=== PATIENT | male | born 1965 | race Caucasian/White ===

== ENCOUNTER 2021-05-09 10:22 | Outpatient (REF) | payer BC, SELFPAY ==
--- NOTE | ~2021-05-09 | XR_ITS ---
EXAMINATION: XR HAND, RIGHT CLINICAL INFORMATION: Right hand pain. COMPARISON: None TECHNIQUE: PA, lateral, and oblique views of the right hand. FINDINGS: There is widening of the scapholunate joint space, measuring 0.6 cm. The bony alignments are otherwise intact. The cortices are intact. Mild degenerative osteoarthrosis is seen at the radiocarpal, distal radioulnar and the first carpometacarpal joint. Soft tissues are unremarkable. XR/XR hand RT min 3V IMPRESSION: Abnormal study showing evidence of widening of the scapholunate joint space measuring 0.3 cm, consistent with scapholunate ligamentous tear. Incidental note is made of mild degenerative osteoarthrosis of the radiocarpal, distal radioulnar and carpometacarpal joints.
[2021-05-09 14:17] LABS: Baso%MD 0.5 %; Eos%MD 1.6 %; Hematocrit 44.9 % (42-52); IG%MD 0.3 %; Lymph%MD 17.4 %; Mean Corpuscular HGB Conc 33.4 g/dl (31.0-36.0); Mean Corpuscular Hemoglobin 32.3 pg (27.0-33.0); Mean Corpuscular Volume 96.6 fL (80-98); Mono%MD 9.6 %; Neut%MD 70.6 %; Platelet Count 255 X10*3/uL (160-400); Red Blood Count 4.65 X10*6/uL (4.60-5.80); Red Cell Distribution Width 13.1 % (11.0-16.0); White Blood Count 11.5 X10*3/uL (4.8-10.8)
[2021-05-09 14:54] LABS: Uric Acid 7.6 mg/dL (3.4-7.0)
[2021-05-09 14:57] LABS: Rheumatoid Factor < 15.0 IU/mL (<15.0)
[2021-05-09 15:12] LABS: Erythrocyte Sedimentation Rate 23 MM/HR (0-15)
[2021-05-09 15:19] LABS: Band Neutrophils Percent 2 % (3-5); Eosinophils Absolute Manual 0.1 X10*3/UL (0.0-0.8); Eosinophils Percent Manual 1 % (0-4); Lymphocytes Absolute Manual 2.2 X10*3/uL (0.6-4.8); Lymphocytes Percent Manual 19 % (20-40); Monocytes Percent Manual 9 % (2-11); Neutrophils Absolute Manual 8.2 X10*3/uL (2.2-7.9); Neutrophils Percent Manual 69 % (45-73); Platelet Estimate NORMAL (NORMAL); Platelet Morphology Comment NORMAL; RBC Morphology NORMAL
== END 2021-05-09 10:23 | disposition home or self-care (01) ==
LOC: HO.HMGCX 10:22
PROVIDERS: PCP Internal Medicine; Visit Provider Physician Assistant Medical
DX: M79.641 Pain in right hand (principal)
CPT/HCPCS: 36415; 73130; 84550; 85007; 85027; 85652; 86431

== ENCOUNTER 2021-05-10 11:07 | Outpatient (REF) | payer BC, SELFPAY ==
--- NOTE | ~2021-05-10 | XR_ITS ---
EXAMINATION: XR WRIST, RIGHT CLINICAL INFORMATION: Pain right hand. COMPARISON: Previous right hand x-ray 05/09/2021 TECHNIQUE: Clenched view of both wrists. FINDINGS: There is widening of the scapholunate distance. There may be slight proximal migration of the capitate. Soft tissues are unremarkable. There may be subtler changes seen on the left. XR/XR hand wrist RT IMPRESSION: Widened right scapholunate joint and proximal migration of the capitate. There may be subtler similar changes on the left.
== END 2021-05-10 11:08 | disposition home or self-care (01) ==
LOC: HO.HOSX 11:07
PROVIDERS: PCP Internal Medicine; Visit Provider Physician Assistant
DX: M79.641 Pain in right hand (principal); M25.331 Other instability, right wrist
CPT/HCPCS: 73110; 73130

== ENCOUNTER 2021-05-30 11:23 | Outpatient (REF) | payer BC, SELFPAY ==
[2021-05-30 12:40] LABS: Influenza A PCR NEGATIVE (Negative); Influenza B PCR NEGATIVE (Negative); Resp Syncy Virus RNA Qual PCR NEGATIVE (Negative); SARS COV2 PCR INHOUSE NEGATIVE (Negative)
== END 2021-05-30 11:24 | disposition home or self-care (01) ==
LOC: HO.LNP 11:23
PROVIDERS: Visit Provider Internal Medicine
DX: Z20.822 Contact with and (suspected) exposure to COVID-19 (principal); R43.9 Unspecified disturbances of smell and taste
CPT/HCPCS: 0241U

== ENCOUNTER 2021-08-02 18:47 | Outpatient (REF) | payer BC, SELFPAY | END 2021-08-02 18:48 | disposition home or self-care (01) | LOC: HO.LNP 18:47 | PROVIDERS: Visit Provider Physician Assistant Medical | DX: L02.91 Cutaneous abscess, unspecified (principal) | CPT/HCPCS: 87071; 87205 ==

== ENCOUNTER 2024-08-20 08:46 | Outpatient (REF) | payer BC, SELFPAY ==
--- OUTSIDE RECORDS SUMMARY | 2024-08-20 13:57 | XMS_ITS | Clinical Summary ---
Author Organization [address] [place] [address] Address [address] [place] [address] Phone Care Team Providers Care Field Test Engineer Name Role Phone Keith Salazar MD Primary Care Provider [phone] Allergies No known active allergies Medications Medication [...] Department Care Team Description 05/26/2024 Telephone Gastroenterology [facility] [address] [address] Jeet Cardona MD SPECIAL PROCEDURE 05/24/2024 Telephone Gastroenterology [facility] [address] [address] Jeet Cardona MD INFORMATION NEEDED 05/21/2024 Telephone Gastroenterology - [address] [facility] [address] [place] [address] Kin Conrad MD from Last 3 Months Surgical History Surgery Date Site/Laterality Comments KNEE ARTHROSCOPY W/ MENISCAL REPAIR 2008 Bilateral PROCEDURE: MD ARTHROSCOPY KNEE W/MENISCUS RPR MEDIAL/LATERAL CARPAL TUNNEL RELEASE 2011 Right PROCEDURE: MD NEUROPLASTY &/TRANSPOS MEDIAN NRV CARPAL TUNNE Medical [...] Upcoming Encounters Date Type Department Care Team ([facility] st Contact Info) Description 10/26/2024 1:00 PM EDT Appointment [facility] Endoscopy [address] [place] [address] Jeet Cardona MD [address] [place] [address] [address] [place] [address] Health Maintenance Due Date Last Done Comments [...] age to complete this topic Care Teams Field Test Engineer Relationship Specialty Start Date End Date Keith Salazar MD [address] [place] [address] PCP - General Internal Medicine 09/09/18
--- OUTSIDE RECORDS SUMMARY | 2024-08-20 13:57 | XMS_ITS | Clinical Summary ---
Author Organization [facility], Address [address] [place] [place] [phone] Phone Care Team Providers Care Elevator Mechanic Name Role Phone Keith Salazar MD Primary Care Provider [phone] Allergies No known active allergies Medications amLODIPine [...] patient's age to complete this topic Insurance [facility] Care Teams Elevator Mechanic Relationship Specialty Start Date End Date Keith Salazar MD [facility] [address] [place], [place] PCP - General Internal Medicine 12/02/23
--- OUTSIDE RECORDS SUMMARY | 2024-08-20 13:57 | XMS_ITS | Encounter Summary ---
Author Organization [facility] Address [address] [place] [address] Phone Care Team Providers Care Yacht Hand Name Role Phone Keith Salazar MD Primary Care Provider [phone] Encounter Details Date Type Department Care Team (Late st Contact Info) Description 11/18/2023 Documentation Only [facility] [place], [address] [place] [address] Ariana Camacho[place], [place] [address] [place] [address] Social History Tobacco Use Types [...] on filedocumented in this encounter Care Teams Yacht Hand Relationship Specialty Start Date End Date Keith Salazar MD [address] PCP - General Internal Medicine 12/02/23 documented as of this encounter
[2024-08-20 15:59] LABS: Influenza A PCR POSITIVE (Negative); Influenza B PCR NEGATIVE (Negative); Resp Syncy Virus RNA Qual PCR NEGATIVE (Negative); SARS COV2 PCR INHOUSE NEGATIVE (Negative)
== END 2024-08-20 08:47 | disposition home or self-care (01) ==
LOC: HO.HMGCLNP 08:46
PROVIDERS: PCP Internal Medicine; Visit Provider Physician Assistant Medical
DX: J06.9 Acute upper respiratory infection, unspecified (principal); Z13.83 Encounter for screening for respiratory disorder NEC
CPT/HCPCS: 0241U

== ENCOUNTER → 2024-08-20 08:46 | Outpatient (AMB) ==
--- NOTE | 2024-08-20 09:01 | AM.OFFWIN_ITS ---
Intake Vital Signs 08/20/24 09:02 Weight 230 lb BP 116/78 Blood Pressure Location Rt brachial Position Sitting Pulse 98 Pulse Source Pulse Oximeter Temp 99.1 F Temp Source Oral Pulse Oximetry (%) 98 Oxygen Delivery Method Room Air Intake Visit Reasons: EP-chronic cough, tiredness, thirsty, body sore Intake Note: Patient here for cough, body aches, fatigue that started the last couple of days. Patient Tobacco Use Status: Current someday Tobacco user Allergies No Known Allergies [No Known Allergies*] Allergy (Verified 08/20/24 09:02) Do you need a note to return to daycare/school/sports/work: Yes HPI HPI Comments History of Present Illness Details This is a 59-year-old male who presented to the walk-[facility] clinic [facility] of an intermittently dry and intermittently productive cough for the past 2 days. He states the cough becomes so severe that he feels as though he is going to pass out. He states the cough is occasionally productive with yellow sputum but it is usually dry. He denies any associated fever/chills. He denies any chest pain or shortness of breath. He reports associated URI symptoms such as n bianka congestion, rhinorrhea, and sore throat. He does notice occasional wheezing with heavy exertion. He denies any history of asthma or COPD but states that he is a current smoker. He reports positive sick contact with his girlfriend. 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 Review of Systems Const All systems reviewed & are unremarkable except as noted in HPI and below Reports no additional complaints Eyes Reports no additional complaints ENT Reports no additional complaints Card Reports no additional complaints Resp Reports no additional complaints GI Reports no additional complaints Reports no additional complaints Musc Reports no additional complaints Skin/Breast Reports system reviewed and no additional complaints, except as documented Neuro Reports no additional complaints Psych Reports no additional complaints Endo Reports no additional complaints Nestor/Lymph Reports no additional complaints Aller/Immun Reports no additional complaints Physical Exam Vital Signs: Last Vital Signs Temp 99.1 F 08/20/24 09:02 Pulse 98 08/20/24 09:02 BP 116/78 08/20/24 09:02 Pulse Ox 98 08/20/24 09:02 Oxygen Delivery Method Room Air 08/20/24 09:02 Const Other: Vital signs reviewed. Constitutional: Non-toxic appearing. No acute distress. Well-developed and well-nourished. HEENT: Normocephalic and atraumatic. Tympanic membranes without erythema, edema, or bulging bilaterally. External auditory canals without erythema or edema bilaterally. Moist mucous membranes. No pharyngeal erythema or exudates. Skin: Warm and dry. No rashes or lesions noted. Neck: Full and painless range of motion. No cervical lymphadenopathy. Cardio: Regular rate and rhythm. No murmurs, gallops, or rubs. No lower extremity edema. No JVD. Pulmonary: No respiratory distress. No accessory muscle usage. There is faint end expiratory wheezing throughout both lungs. Gastrointestinal: Soft, nontender, and nondistended in all 4 quadrants. Musculoskeletal: Normal range of motion in joints throughout the body. No deformity or other signs of injury. Neuro: Alert and oriented x4. Cranial nerves 2-12 grossly intact. No focal deficits appreciated. Psych: Normal mood and affect. Assessment & Plan Assessment & Plan (1) Acute bronchitis: Code(s): J20.9 - Acute bronchitis, unspecified Qualifiers: Bronchitis organism: unspecified organism Qualified Code(s): J20.9 - Acute bronchitis, unspecified Plan This is a 59-year-old male who presented to the walk-in clinic complaining of an occasionally productive cough x2 days with associated viral URI symptoms. He denies any fevers or chills. On physical examination, he is faint end expiratory wheezing throughout both lungs. His history and physical appear most with acute viral bronchitis. Patient was given a prescription for p.o. prednisone 40 mg daily x5 days and PO benzonatate 200 mg 3 times daily as needed for cough. Recommended symptomatic management including rest, increase fluids/hydration, humidification at nighttime, and [id number] decongestants such as guaifenesin. Patient was advised to follow-up here or proceed to the emergency room if he were to develop any chest pain, shortness of breath, or worsening sputum production/purulence or hemoptysis. Patient verbalizes understanding and he is in agreement with the plan. Orders: Orders SARS-CoV2/FLU/RSV Today J06.9 - Acute upper respiratory infection, unspecified Medications: New prednisone 40 mg (2 x 20 mg) PO DAILY 10 tabs 0RF benzonatate 200 mg PO TID PRN 14 caps 0RF cough Coding Level of Care Code Est Pt Level 3 (45912) Diagnoses Acute bronchitis, unspecified organism J20.9 Bronchitis organism: unspecified organism
--- OUTSIDE RECORDS SUMMARY | 2024-08-20 09:07 | XMS_ITS | Encounter Summary ---
Author Organization [facility] Address [address] [place] [address] Phone Care Team Providers Care Community Planner Name Role Phone Keith Salazar MD Primary Care Provider [phone] Encounter Details Date Type Department Care Team (Late st Contact Info) Description 11/18/2023 Documentation Only [facility], [address] [place] [address] [place]ana [place], [place] [address] [place] [address] Social History Tobacco Use Types Packs/Day Years Used Date Smoking Tobacco: Never Assessed Sex and Gender Information Value Date Recorded Sex Assigned at Not on file Legal Sex Male 8:31 AM EDT Gender Identity Not on file Sexual Orientation Not on file documented as of this encounter Plan of Treatment Not on file documented as of this encounter Visit Diagnoses Not on filedocumented in this encounter Care Teams Community Planner Relationship Specialty Start Date End Date Keith Salazar MD [address] PCP - General Internal Medicine 12/02/23 documented as of this encounter
--- OUTSIDE RECORDS SUMMARY | 2024-08-20 09:07 | XMS_ITS | Clinical Summary ---
Author Organization [address] [place] [address] Address [address] [place] [address] Phone Care Team Providers Care Schedule Hanger Name Role Phone Keith Salazar MD Primary Care Provider [phone] Allergies No known active allergies Medications Medication Sig Dispensed Refills Start Date End Date Status omeprazole (PriLOSEC) [address] capsule Take 1 capsule (20 mg total) by mouth 1 (one) time each day. Active hydroCHLOROthiazide (HYDRODIURIL) 25 mg tablet Take 1 tablet (25 mg total) by mouth 1 (one) time each day. Active oxyCODONE (ROXICODONE) 5 mg immediate release tablet 1 tablet (5 mg total) every 4 (four) hours if needed for severe pain. Max Daily Amount: 30 mg Active amLODIPine-valsartan (EXFORGE) 5-160 mg per tablet Take 1 tablet by mouth 1 (one) time each day. Active fluticasone-umeclidi nium-vilanterol (Trelegy Ellipta) 100-62.5-25 mcg inhaler Inhale 1 puff (100 mcg total) by mouth 1 (one) time each day. Rinse mouth with water after use to reduce aftertaste and incidence of candidiasis. Do not swallow. Active atorvastatin (LIPITOR) 10 mg tablet Take 1 tablet (10 mg total) by mouth at bedtime. Active Encounters Date Type Department Care Team Description 05/26/2024 Telephone Gastroenterology [facility] [address] [address] Jeet Cardona MD SPECIAL PROCEDURE 05/24/2024 Telephone Gastroenterology [facility] [address] [address] Jeet Cardona MD INFORMATION NEEDED 05/21/2024 Telephone Gastroenterology - [address] [facility] [address] [place] [address] Kin Conrad MD from Last 3 Months Surgical History Surgery Date Site/Laterality Comments KNEE ARTHROSCOPY W/ MENISCAL REPAIR 2008 Bilateral PROCEDURE: NM ARTHROSCOPY KNEE W/MENISCUS RPR MEDIAL/LATERAL CARPAL TUNNEL RELEASE 2011 Right PROCEDURE: NM NEUROPLASTY &/TRANSPOS MEDIAN NRV CARPAL TUNNE Medical History Medical History Date Comments Tobacco abuse 10/28/2018 DX:Tobacco abuse Tubular adenoma of colon 10/28/2018 DX:Tubu lar adenoma of colon; COMMENT: 3 in 11/2015 COPD (chronic obstructive pu lmonary disease) (CMS/HCC) 11/06/2018 DX:COPD (chronic obstructive pulmonary disease) (HCC) Pulmonary nodules 11/06/2018 DX:Pulmonary n odules Esophageal varices (CMS/HCC) 11/18/2018 DX: Esophageal varices (HCC) GERD with esophagitis 11/18/2018 DX:GERD wi th esophagitis; COMMENT: La grade A Alcohol abuse 11/18/2018 DX:Alcohol abuse Family History Medical History Relation Name Comments Colon cancer Neg Hx Social History Tobacco Use Types Packs/Day Years Used Date Smoking Tobacco: Smoker, Cur rent Status Unknown Cigarettes 1 42.4 Started: 982 Smokeless Tobacco: Never Alcohol Use Standard Drinks/Week Comments Yes 0 (1 standard drink = 0.6 oz pur e alcohol) Sex and Gender Information Value Date Recorded Sex Assigned at Not on file Gender Identity Not on file Sexual Orientation Not on file Obstetrics History Last Filed Vital Signs Vital Sign Reading Time Taken Comments Blood Pressure 144/90 07/22/2022 9:02 AM EST Sit ting L Arm Pulse 88 07/22/2022 9:02 AM EST Temperature - - Respiratory Rate - - Oxygen Saturation - - Inhaled Oxygen Concentration - - Weight 103 kg (228 lb) 07/22/2022 9:02 AM EST Height - - Body Mass Index - - Plan of Treatment Upcoming Encounters Date Type Department Care Team ([facility] st Contact Info) Description 10/26/2024 1:[address] [facility] Endoscopy [address] [place] [address] Jeet Cardona MD [address] [place] [address] [address] [place] [address] Health Maintenance Due Date Last Done Comments Pneumococcal Vaccine: Pediat rics (0 to 5 Years) and At-Risk Patients (6 to 64 Years) (1 of 2 - PCV) 1970 DTaP,Tdap,and Td Vaccines (1 - Tdap) 1983 Hepatitis A Vaccines (1 of 2 - Risk 2-dose series) 1983 Zoster Vaccines (1 of 2) 2014 Cholesterol Screening (Lipid Panel) 06/23/2022 Colorectal Cancer Screening: Colonoscopy 06/23/2022 Depression Screening 06/23/2022 HIV Screening 06/23/2022 Hepatitis C Screening 06/23/2022 Social Influencers of Health Screening 06/23/2022 COVID-19 Vaccine (1 - 2023-2 5 season) 2024 Influenza Vaccine (#1) 2024 RSV Immunization Patients 60 + Years Old (1 - Risk 60-74 years 1-dose series) 2024 HIB Vaccines Aged Out No longer eligi ble based on patient's age to complete this topic HPV Vaccines Aged Out No longer eligi ble based on patient's age to complete this topic Hepatitis B Vaccines Aged Out No long er eligible based on patient's age to complete this topic IPV Vaccines Aged Out No longer eligi ble based on patient's age to complete this topic MMR Vaccines Aged Out No longer eligi ble based on patient's age to complete this topic Meningococcal ACWY Vaccine Aged Out N o longer eligible based on patient's age to complete this topic RSV Immunization Patients Un antonia 20 months Aged Out No longer eligible b ased on patient's age to complete this topic Varicella Vaccines Aged Out No longer eligible based on patient's age to complete this topic Care Teams Schedule Hanger Relationship Specialty Start Date End Date Keith Salazar MD [address] [place] [address] PCP - General Internal Medicine 09/09/18
--- OUTSIDE RECORDS SUMMARY | 2024-08-20 09:07 | XMS_ITS | Clinical Summary ---
Author Organization [facility], Address [address] [place] [address] [place] [phone] Phone Care Team Providers Care Rn Acls Name Role Phone Keith Salazar MD Primary Care Provider [phone] Allergies No known active allergies Medications amLODIPine (NORVASC) 5 MG tablet Take 5 mg by mouth 1 (one) time each day For 30 days 02/09/2024 Active atorvastatin (LIPITOR) 10 MG tablet TAKE 1 TABLET BY MOUTH EVERY DAY FOR 90 DAYS 12/09/2023 Active omeprazole OTC (PriLOSEC OTC) 20 MG EC tablet Take 20 mg by mouth 1 (one) time each day Do not crush, chew, or split. Active Fluticasone-Umec lidin-Vilant (TRELEGY ELLIPTA IN) Inhale 100 mg Active Active Problems Problem Noted Date Diagnosed Date Hypertension 02/18/2024 Atrophy of kidney 02/18/2024 Cigarette smoker 02/18/2024 Social History Tobacco Use Types Packs/Day Years Used Date Smoking Tobacco: Never Assessed Sex and Gender Information Value Date Recorded Sex Assigned at Not on file Legal Sex Male 8:31 AM EDT Gender Identity Not on file Sexual Orientation Not on file Plan of Treatment Health Maintenance Due Date Last Done Comments Colorectal Cancer Screening: Annual FOBT 2013 Colorectal Cancer Screening: Colonoscopy 2013 Colorectal Cancer Screening: Sigmoidoscopy 2013 Influenza Vaccine (#1) 2024 Hepatitis B Vaccine Aged Out No longe r eligible based on patient's age to complete this topic Pneumococcal Vaccine: Pediat rics (0 to 5 Years) and At-Risk Patients (6 to 64 Years) Aged Out No longer eligible b ased on patient's age to complete this topic Insurance [facility] Care Teams Rn Acls Relationship Specialty Start Date End Date Keith Salazar MD [facility] [address] [place], [place] PCP - General Internal Medicine 12/02/23
== END | disposition home or self-care (01) ==

== ENCOUNTER 2024-10-18 14:30 | Outpatient (AMB) | payer BC, SELFPAY ==
--- NOTE | 2024-10-18 14:31 | AM.OFFWIN_ITS ---
Intake Vital Signs 10/18/24 14:32 Weight 243 lb BP 132/80 Blood Pressure Location Lt brachial Position Sitting Pulse 103 H Pulse Source Pulse Oximeter Pulse Oximetry (%) 98 Oxygen Delivery Method Room Air Intake Visit Reasons: EP-rt hand pain & swollen Intake Note: Patient here for right hand pain and swelling. Patient Tobacco Use Status: Current someday Tobacco user Allergies No Known Allergies [No Known Allergies*] Allergy (Verified 08/20/24 09:02) Do you need a note to return to daycare/school/sports/work: Yes HPI HPI Comments History of Present Illness Details 59 y/o Male patient who presents to the walk in clinic with c/o Right hand swelling and pain that started this past weekend. 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 Patient states that usually Prednisone Helps resolve the swelling. He was told by an Orthopedic Surgeon that he needed surgical repair but Patient is scared and has been putting it off for over a year now. 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 Review of Systems Const All systems reviewed & are unremarkable except as noted in HPI and below Physical Exam Vital Signs: Last Vital Signs Pulse 103 H 10/18/24 14:32 BP 132/80 10/18/24 14:32 Pulse Ox 98 10/18/24 14:32 Oxygen Delivery Method Room Air 10/18/24 14:32 Const General: no acute distress Nutritional Appearance: obese Orientation/consciousness: patient oriented x3 Neuro General: patient oriented x3, gait normal and moves all extremities Extrem Right upper extremity: wrist Details: tenderness Location: of the distal radius and of the distal ulna, swelling Location: of the dorsal wrist, normal ROM, radial pulse present and ulnar pulse present; no ecchymosis and no crepitus and Extremity exam: right hand Details: normal capillary refill, tenderness, normal ROM of fingers and swelling Location: of the dorsal hand, of the thumb, of the 2nd digit, of the 3rd digit, of the 4th digit and of the 5th digit; no crepitus Left upper extremity: normal to inspection Psych Speech and movement: Normal speech and movement present Assessment & Plan Assessment & Plan (1) 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 F/U with Orthopedics NSAIDs for pain relief. 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
[2024-10-18 14:32] VITALS: BP 132/80; PULSE 103; O2SAT 98
--- OUTSIDE RECORDS SUMMARY | 2024-10-18 17:20 | XMS_ITS | Clinical Summary ---
Author Organization [facility] Address [address] [place] [address] Phone Care Team Providers Care Construction And Maintenance Inspector Name Role Phone Keith Salazar MD Primary Care Provider [phone] Allergies No known active allergies Medications omeprazole (PriLOSEC) [address] capsule Take 1 capsule (20 mg total) by mouth 1 (one) time each day. Active hydroCHLOROthia zide (HYDRODIURIL) 25 mg tablet Take 1 tablet (25 mg total) by mouth 1 (one) time each day. Active oxyCODONE (ROXICODONE) 5 mg immediate release tablet 1 tablet (5 mg total) every 4 (four) hours if needed for severe pain. Max Daily Amount: 30 mg Active amLODIPine-vals rolando (EXFORGE) 5-160 mg per tablet Take 1 tablet by mouth 1 (one) time each day. Active fluticasone-ume clidinium-vilan terol (Trelegy Ellipta) 100-62.5-25 mcg inhaler Inhale 1 puff (100 mcg total) by mouth 1 (one) time each day. Rinse mouth with water after use to reduce aftertaste and incidence of candidiasis. Do not swallow. Active atorvastatin (LIPITOR) 10 mg tablet Take 1 tablet (10 mg total) by mouth at bedtime. Active polyethylene glycol (Golytely) 236-22.74-6.74 -5.86 gram solution Take 4L by mouth once for one dose. May substitue any PEG. Starting at 6PM the night before your procedure drink 1 8oz glasses at your own pace until you complete half of the gallon. Finish 2nd half of the gallon 5 hours before your procedure. 4000 mL 5 Active bisacodyL (DULCOLAX) 5 mg EC tablet Take 2 tablets by mouth right before beginning bowel prep. See instructions provided by the office 2 tablet 5 Active Surgical History Surgery Date Site/Laterality Comments KNEE ARTHROSCOPY W/ MENISCAL REPAIR 2008 Bilateral PROCEDURE: ME ARTHROSCOPY KNEE W/MENISCUS RPR MEDIAL/LATERAL CARPAL TUNNEL RELEASE 2012 Right PROCEDURE: ME NEUROPLASTY &/TRANSPOS MEDIAN NRV CARPAL TUNNE Medical History Medical History Date Comments Tobacco abuse 10/28/2018 DX:Tobacco abuse Tubular adenoma of colon 10/28/2018 DX:Tubu lar adenoma of colon; COMMENT: 3 in 11/2015 COPD (chronic obstructive pu lmonary disease) (CMS/HCC) 11/06/2018 DX:COPD (chronic obstructive pulmonary disease) (HCC) Pulmonary nodules 11/06/2018 DX:Pulmonary n odules Esophageal varices 11/18/2018 DX:Esophageal varices (HCC) GERD with esophagitis 11/18/2018 DX:GERD wi th esophagitis; COMMENT: La grade A Alcohol abuse 11/18/2018 DX:Alcohol abuse Family History Medical History Relation Name Comments Colon cancer Neg Hx Social History Tobacco Use Types Packs/Day Years Used Date Smoking Tobacco: Smoker, Cur rent Status Unknown Cigarettes 1 42.5 Started: 982 Smokeless Tobacco: Never Alcohol Use Standard Drinks/Week Comments Yes 0 (1 standard drink = 0.6 oz pur e alcohol) Sex and Gender Information Value Date Recorded Sex Assigned at Not on file Legal Sex Male 10:19 AM EST Gender Identity Not on file Sexual Orientation [...] Upcoming Encounters Date Type Department Care Team (Late st Contact Info) Description 10/26/2024 1:00 PM EDT Hospital Encounter [facility] Endoscopy [address] [place] [address] Jeet Cardona MD [address] [place] [address] Health Maintenance Due Date Last Done Comments DTaP,Tdap,and Td Vaccines (1 - Tdap) 1983 Pneumococcal Vaccine: 50+ Ye ars (1 of 2 - PCV) 1983 Pneumococcal Vaccine: Pediat rics (0 to 5 Years) and At-Risk Patients (6 to 64 Years) (1 of 2 - PCV) 1983 Zoster Vaccines (1 of 2) 2014 Cholesterol Screening (Lipid Panel) 06/23/2022 Colorectal Cancer Screening: Colonoscopy 06/23/2022 Depression Screening 06/23/2022 HIV Screening 06/23/2022 Hepatitis C Screening 06/23/2022 Social Influencers of Health Screening 06/23/2022 COVID-19 Vaccine (2023-2 5 season) 2024 RSV Immunization Adult Patie nts (1 - Risk 60-74 years 1-dose series) 2024 Influenza Vaccine (Season Ended) 2025 HIB Vaccines Aged Out No longer eligi ble based on patient's age to complete this topic HPV Vaccines Aged Out No longer eligi ble based on patient's age to complete this topic Hepatitis A Vaccines Aged Out No long er eligible [...] patient's age to complete this topic Meningococcal B Vaccine Aged Out No l onger eligible based on patient's age to complete this topic RSV Immunization Patients Un antonia 20 months Aged Out No longer eligible b ased on patient's age to complete this topic Varicella Vaccines Aged Out No longer eligible based on patient's age to complete this topic Insurance [facility] Care Teams Construction And Maintenance Inspector Relationship Specialty Start Date End Date Keith Salazar MD [address] [place] [phone] PCP - General Internal Medicine 09/09/18
--- OUTSIDE RECORDS SUMMARY | 2024-10-18 17:20 | XMS_ITS | Clinical Summary ---
Author Organization [facility], Address [address] [place] [address] [place] [phone] Phone Care Team Providers Care Component Assembler Name Role Phone Keith Salazar MD Primary Care Provider [phone] Allergies No known active allergies Medications amLODIPine [...] Colorectal Cancer Screening: Sigmoidoscopy 2013 Influenza Vaccine (Season Ended) 2025 Hepatitis B Vaccine Aged Out No longe r eligible based on patient's age to complete this topic Pneumococcal Vaccine: Pediat rics (0 to 5 Years) and At-Risk Patients (6 to 64 Years) Aged Out No longer eligible b ased on patient's age to complete this topic Insurance [facility] Care Teams Component Assembler Relationship Specialty Start Date End Date Keith Salazar MD [facility] [address], [place] PCP - General Internal Medicine 12/02/23
--- OUTSIDE RECORDS SUMMARY | 2024-10-18 17:20 | XMS_ITS | Encounter Summary ---
Author Organization [facility] Address [address] [place] [address] Phone Care Team Providers Care Network Communications Engineer Name Role Phone Keith Salazar MD Primary Care Provider [phone] Encounter Details Date Type Department Care Team (Late st Contact Info) Description 11/18/2023 Documentation Only [facility], [address] [place] [address] [place], [place] [address] [place] [address] Social History Tobacco Use Types [...] on filedocumented in this encounter Care Teams Network Communications Engineer Relationship Specialty Start Date End Date Keith Salazar MD [address] PCP - General Internal Medicine 12/02/23 documented as of this encounter
== END 2024-10-18 15:14 | disposition home or self-care (01) ==
PROVIDERS: PCP Internal Medicine; Visit Provider Nurse Practitioner Family
DX: M93.1 Kienbock's disease of adults (principal)

== ENCOUNTER → 2024-10-18 14:30 | Outpatient (BNVA) | payer BC, SELFPAY | PROVIDERS: PCP Internal Medicine; Visit Provider Nurse Practitioner Family | DX: Z13.89 Encounter for screening for other disorder (principal) ==

== ENCOUNTER 2025-01-19 09:16 | Inpatient (IN) | payer BC, SELFPAY ==
--- NOTE | 2025-01-19 | ECG_ITS ---
Test Reason : seizures Blood Pressure : */* mmHG Vent. Rate : 65 BPM Atrial Rate : 65 BPM P-R Int : 168 ms QRS Dur : 82 ms QT Int : 378 ms P-R-T Axes : 64 1 40 degrees QTcB Int : 393 ms Sinus rhythm with Premature atrial complexes Otherwise normal ECG When compared with ECG of 24-Sep-2007 17:01, MANUAL COMPARISON REQUIRED PREVIOUS ECG IS INCOMPATIBLE Referred By: Generic ED Physician Electronically Signed By: Raul Lee
--- NOTE | ~2025-01-19 | CT_ITS ---
EXAMINATION: CT HEAD WITHOUT CONTRAST CLINICAL INFORMATION: body twitching, dizziness, imbalance COMPARISON: None available. TECHNIQUE: Contiguous axial imaging was performed from the skull base to vertex without intravenous administration of contrast. This CT examination was performed using dose optimization techniques as appropriate, variously including the following: *Automated exposure control *Adjustment of mA and/or kV according to patient size (this includes techniques or standardized protocols for targeted exams where dose is matched to indication/reason for exam; i.e. extremities or head) *Use of iterative reconstruction technique DLP: 725 mGy-cm FINDINGS: No acute intracranial hemorrhage, mass effect, midline shift, hydrocephalus or herniation. Vides-white matter differentiation is normal. Sellar/suprasellar region demonstrated no gross masses. Craniocervical junction demonstrates normal position of the cerebellar tonsils. Mucosal thickening, left ethmoid cells. No air-fluid levels paranasal sinuses. Tympanic cavities and mastoid cells are aerated. CT/CT head/brain wo IV con IMPRESSION: No acute intracranial hemorrhage or acute brain abnormality by CT. Electronically signed by: Taran Ayala MD 01/19/2025 01:01 PM EDT
[2025-01-19 09:31] VITALS: BP 150/81; PULSE 75; RESP 18; TEMP 36.7; O2SAT 98; BMI 30.3
[2025-01-19 09:57] LABS: MANUAL DIFF FLAG NO
[2025-01-19 09:59] LABS: Hematocrit 42.2 % (42.0-52.0); Hemoglobin 14.5 g/dl (14.0-18.0); Imm Gran Abs Auto 0.04 X10*3/uL (0.00-0.03); Imm Gran Pct Auto 0.4 % (0.0-0.4); Lymphocytes Absolute Auto 1.7 X10*3/uL (1.2-4.9); Mean Corpuscular HGB Conc 34.4 g/dl (31.0-36.0); Mean Corpuscular Hemoglobin 32.9 pg (27.0-33.0); Mean Corpuscular Volume 95.7 fL (80.0-98.0); NRBC Abs Auto 0.000 X10*3/uL (0.0-0.012); NRBC Pct Auto 0.0 /100WBC (0.0-0.2); Platelet Count 250 X10*3/uL (160-400); Red Blood Count 4.41 X10*6/uL (4.60-5.80); White Blood Count 9.9 X10*3/uL (4.8-10.8)
[2025-01-19 10:14] LABS: Alanine Aminotransferase 55 U/L (0-40); Albumin Level 4.2 g/dL (3.5-5.0); Alkaline Phosphatase 110 U/L (39-117); Anion Gap 12 (12-20); Blood Urea Nitrogen 17 mg/dL (9-16); Calcium 9.3 mg/dL (8.4-10.2); Carbon Dioxide 28 mmol/L (22-29); Chloride 104 mmol/L (96-108); Creatinine Clr Calc Pharmacy 92.2; Estimated Glomerular Filt Rate > 60; Magnesium 2.4 mg/dL (1.6-2.6); Potassium 5.0 mmol/L (3.3-5.1); Sodium 139 mmol/L (135-145); Total Protein 7.6 g/dL (6.5-8.0)
[2025-01-19 10:23] LABS: Troponin-I High Sensitivity < 2.7 ng/L (<3.5-35.0)
--- NOTE | 2025-01-19 10:25 | ED.GENADULT ---
HPI - General Adult General Chief complaint: General Medical Stated complaint: Seizures Time Seen by Provider: 01/19/25 10:25 Source: patient Mode of arrival: ambulatory Limitations: no limitations History of Present Illness ED Provider: Sommer Haq PA-C HPI narrative: Patient is a 59 year old assigned male at with a history of daily alcohol use presenting to the emergency department today with intermittent episodes of feeling flush, shaky, shortness of breath, and weak. Patient states that the he has been having an increase in these episodes and they feel like seizures and are getting worse. Patient states that he drinks 4-5 drinks per day and has for a long time. Patient states that he is not sure what happens if he weren't to drink. Patient denies any dizziness, lightheadedness, abdominal pain, nausea, vomiting, fever, chills, blurry vision, double vision, loss of vision, chest pain, difficulty breathing, shortness of breath, back pain, night sweats, pain with urination, increased urinary frequency, increased urinary urgency, blood in his urine or stool, syncope or a near syncopal episode, recent trauma or falls, bowel incontinence, bladder incontinence, or any other complaints at this time. Relieving factors: none Exacerbating factors: none Associated symptoms: seizure (seizure like activity) Treatments prior to arrival: none Related Data Home Medications ?Medication ?Instructions ?Recorded ?Confirmed nadolol 40 mg tablet 40 mg PO DAILY 05/09/21 10/23/21 omeprazole 20 mg capsule,delayed 20 mg PO DAILY 05/09/21 10/23/21 release amlodipine 10 mg tablet 10 mg PO DAILY 08/20/24 fluticasone fur. 100 mcg-umeclid 1 inh inhalation DAILY 08/20/24 62.5 mcg-vilant 25 mcg inhalat.powder (Trelegy Ellipta) valsartan 320 mg tablet 320 mg PO DAILY 08/20/24 allopurinol 100 mg tablet 100 mg PO DAILY 01/19/25 atorvastatin 10 mg tablet 10 mg PO DAILY 01/19/25 nebivolol 5 mg tablet 5 mg PO DAILY 01/19/25 Previous Rx's ?Medication ?Instructions ?Recorded albuterol sulfate 90 mcg/actuation 1 inh inhalation QID PRN shortness 07/26/21 aerosol inhaler of breath or wheezing #6.7 grams Allergies Allergy/AdvReac Type Severity Reaction Status Date / Time No Known Allergies (No Known Allergy Verified 01/19/25 09:36 Allergies*) Review of Systems Constitutional: Constitutional: Reports no additional constitutional complaints, Denies chills, Denies fever(s) and Denies night sweats Eyes: Eyes: Reports no additional eye complaints, Denies blurry vision, Denies change in vision, Denies diplopia, Denies eye discharge, Denies loss of vision and Denies eye pain ENT: Denies dizziness Cardiovascular: Cardiovascular: Reports no additional cardiovascular complaints, Denies chest pain, Denies lightheadedness, Denies Loss of Consciousness and Denies dyspnea Respiratory: Respiratory: Reports no additional respiratory complaints and Denies dyspnea Gastrointestinal: Gastrointestinal: Reports no additional gastrointestinal complaints, Denies abdominal pain, Denies melena, Denies hematochezia, Denies change in bowel habits and Denies change in stool character Genitourinary: Genitourinary: Reports no additional male genitourinary complaints, Denies hematuria, Denies oliguria, Denies difficulty urinating, Denies dysuria, Denies urinary frequency, Denies urinary hesitancy, Denies urinary incontinence and Denies urinary urgency Musculoskeletal: Musculoskeletal: Reports no additional musculoskeletal complaints, Denies numbness and Denies tingling Neurologic: Denies dizziness, Denies loss of vision, Denies numbness and Denies tingling Comments: seizure like activity Psychiatric: Psychiatric: Reports no additional psychiatric complaints Endocrine: Endocrine: Reports no additional endocrine complaints Hematologic/Lymphatic: Hematologic/Lymphatic: Reports no additional hematologic/lymphatic complaints Allergic/Immunologic: Allergic/Immunologic: Reports no additional allergic/immunologic complaints PMFSH Past Medical History Attestation statement: The following information was validated with the patient. Source: old records reviewed and nursing notes reviewed Medical History (Updated 01/19/25 @ 13:05 by LONNY Sanders) COPD (chronic obstructive pulmonary disease) Hypertension Surgical History History of carpal tunnel surgery of right wrist Social History Social History Alcohol intake: current Alcohol intake frequency: 3 or more drinks per day Alcohol type: beer Patient Tobacco Use Status: Never used Tobacco Smoked in Last 30 Days: Yes Use of substances other than those prescribed or required for medical reasons: No Advance Directives: No Advance Directives Information Provided: Yes Nutrition Risks: No Nutritional Risk Current occupational status: employed 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 Physical Exam ED Vital Signs: Vital Signs - 24 hr 01/19/25 09:31 Temperature 98.1 F Pulse Rate 75 Respiratory Rate 18 Blood Pressure 150/81 H Pulse Oximetry 98 Oxygen Delivery Method Room Air BMI result Body Mass Index 30.3 Const General: cooperative, no acute distress, alert and awake Nutritional Appearance: well nourished Orientation/consciousness: patient oriented x3 HENMT Head: Yes normal to inspection and Yes atraumatic Ears: hearing grossly normal bilaterally and external ears normal General nose exam: Normal external nose present, no nasal discharge noted and no epistaxis Face and sinus: Yes normal facial exam, No abrasion and No laceration Mouth: Normal oral and palatal mucosa present, no drooling and no muffled voice Eyes General: appearance normal, both eyes and all related structures Periorbital: periorbital findings normal Eyelids: Yes eyelids normal Conjunctivae: conjunctivae normal Pupils: Equal, round and reactive pupils present EOM: EOMs intact bilaterally Neck Neck: Yes normal visual inspection, Yes full ROM and Yes no lymphadenopathy Resp Effort & Inspection: normal respiratory effort and able to speak in complete sentences Neuro General: patient oriented x3, moves all extremities and CN's II-XI intact bilaterally Cranial nerves: Yes Equal, round and reactive pupils present Cognition (Neuro): normal cognition Extrem General: Yes normal to inspection, Yes full ROM and Yes capillary refill normal Psych Appearance: grossly normal Mental Status: mental status grossly normal Affect: normal affect Attitude: cooperative Thought process: Normal thought process present Thought content: Normal thought content present Insight: Good insight present (Psych) Medications Administered Generic Name Dose Route Start Last Admin Trade Name Freq PRN Reason Stop Dose Admin Enoxaparin Sodium 40 mg 01/19/25 12:00 01/19/25 11:56 Enoxaparin Sodium 40 Mg/0.4 Ml Syringe SUBCUT 40 mg Q24H JOCELYN Administration Lactated Ringer's 1,000 mls @ 125 mls/hr 01/19/25 11:45 01/19/25 12:05 Lr IVCONT 125 mls/hr .Q8H JOCELYN Administration Discontinued Medications Generic Name Dose Route Start Last Admin Trade Name Freq PRN Reason Stop Dose Admin Phenobarbital Sodium 320 mg 01/19/25 11:00 01/19/25 11:56 Phenobarbital Sodium 130 Mg/Ml Im Once IM 01/19/25 11:01 320 mg ONCE ONE Administration Protocol Medical Decision Making Medical Decision Making [facility] Narrative: Patient is a 59 year old assigned male at with a history of daily alcohol use presenting to the emergency department today with intermittent episodes of feeling flush, shaky, shortness of breath, and weak. Patient's physical exam was unremarkable. Patient's blood work showed mildly elevated LFTs consistent with his alcohol use but were otherwise unremarkable. Patient's EKG was unremarkable. I am suspicious this is how the patient's alcohol withdrawal is presenting and he may be seizing but given he didn't have an episode in the department - I cannot confirm they are or aren't. Patient started on phenobarb. I spoke with the hospitalist team who agreed to admission. I explained my physical exam findings as well as all test results to the patient. I answered all questions asked by the patient. Patient verbalized agreement and understanding with this treatment plan and admission. Differential Diagnosis Differential Diagnoses: The differential diagnosis associated with the presentation includes Alcohol withdrawal Seizure disorder Anxiety Admission/Observation Consideration of admission/observation: Escalation of care including admission/observation considered Patient admitted as noted in the MDM Rationale portion of this note. Consult Healthcare Provider Management of the patient was discussed with: Hospitalist (agreed to admission as noted in the MDM Rationale portion of this note. ) Lab Data [facility] Lab Attestation statement: I reviewed the patient's lab results. My interpretation of these results are in the MDM Rationale portion of this note. 01/19/25 09:51 01/19/25 09:51 Labs: Lab Results 01/19/25 01/19/25 01/19/25 Range/Units 09:51 10:46 10:58 WBC 9.9 (4.8-10.8) X10*3/uL RBC 4.41 L (4.60-5.80) X10*6/uL Hgb 14.5 (14.0-18.0) g/dl Hct 42.2 (42.0-52.0) % MCV 95.7 (80.0-98.0) fL MCH 32.9 (27.0-33.0) pg MCHC 34.4 (31.0-36.0) g/dl RDW 13.2 (11.0-16.0) % Plt Count 250 (160-400) X10*3/uL MPV 9.4 (9.4-12.4) fL Immature Gran % (Auto) 0.4 (0.0-0.4) % Neut % (Auto) 70.7 (45-73) % Lymph % (Auto) 17.0 L (20-40) % Major % (Auto) 9.7 (2-11) % Eos % (Auto) 1.5 (0-4) % Baso % (Auto) 0.7 (0-2) % Lymph # (Auto) 1.7 (1.2-4.9) X10*3/uL Major # (Auto) 1.0 (0.1-1.2) X10*3/uL Eos # (Auto) 0.2 (0.0-0.4) X10*3/uL Baso # (Auto) 0.1 (0.0-0.2) X10*3/uL Abs Immat Gran (auto) 0.04 H (0.00-0.03) X10*3/uL Absolute Neuts (auto) 7.0 (2.0-8.3) x10*3/uL Absolute Nucleated RBC 0.000 (0.0-0.012) X10*3/uL Nucleated RBC % (auto) 0.0 (0.0-0.2) /100WBC Sodium 139 (135-145) mmol/L Potassium 5.0 (3.3-5.1) mmol/L Chloride 104 (96-108) mmol/L Carbon Dioxide 28 (22-29) mmol/L Anion Gap 12 (12-20) BUN 17 H (9-16) mg/dL Creatinine 1.08 (0.5-1.4) mg/dL Estim Creat Clear Calc 92.2 Estimated GFR > 60 Random Glucose 117 H (60-115) mg/dL Calcium 9.3 (8.4-10.2) mg/dL Magnesium 2.4 (1.6-2.6) mg/dL Total Bilirubin 0.4 (0.0-1.0) mg/dL AST 63 H (5-37) U/L ALT 55 H (0-40) U/L Alkaline Phosphatase 110 (39-117) U/L Troponin I High Sens < 2.7 (<3.5-35.0) ng/L Total Protein 7.6 (6.5-8.0) g/dL Albumin 4.2 (3.5-5.0) g/dL Vitamin B12 180 L (200-900) pg/mL Folate 10.4 (> or = 4.0) ng/mL Ethyl Alcohol < 10 mg/dL Influenza Type A (PCR) NEGATIVE (Negative) Influenza Type B (PCR) NEGATIVE (Negative) RSV RNA Qual (PCR) NEGATIVE (Negative) SARS-CoV-2 RNA (RT-PCR) NEGATIVE (Negative) Independent Interpretation I performed an independent interpretation of an: EKG Interpretation: I independently interpreted this EKG and am in agreement with the below findings: Vent. Rate: 65 BPM Atrial Rate: 65 BPM P-R Int: 168 ms QRS Dur: 82 ms QT Int: 378 ms P-R-T Axes: 64 1 40 degrees QTcB Int: 393 ms Sinus rhythm with Premature atrial complexes Otherwise normal ECG DD/ [id number] Critical Care Time Critical Care Time Critical Care Time: Yes Total Critical Care Time: 33 Attestation: I spent 33 minutes of Critical Care Time with this patient. This does not include time spent on separately reported billable procedures. Discharge Plan Discharge Clinical Impression: Alcohol withdrawal Patient Disposition: Admitted As Inpatient
[2025-01-19 10:38] LABS: Aspartate Amino Transferase 63 U/L (5-37)
--- NOTE | 2025-01-19 11:00 | PC.NURSE ---
pt states that he has been experiencing weird seizures for several weeks. during these episodes his hands and legs clench up. He states that when these episodes happen he can't walk well. If he is driving he clutches the steering wheel tightly. He always remembers the events and does not loose consciousness. He denies recent fall or HS. He is concerned bc sometimes these episodes happen when he is at work and using a ladder or escalator and he gets vertigo and almost falls . No history of these episodes before recent weeks. pt is a daily drinker. he reports 4-6 beers daily after work. He denies hx of withdrawal. mildly anxious - CIWA 1
[2025-01-19 11:37] LABS: Resp Syncy Virus RNA Qual PCR NEGATIVE (Negative); SARS COV2 PCR INHOUSE NEGATIVE (Negative)
--- NOTE | 2025-01-19 11:38 | P.HPHOSP_ITS ---
History of Present Illness Date of Service: 01/19/25 Chief Complaint: Alcohol withdrawal 59-year-old man presented to the ER with complaints of shakiness like muscle twitching, dizziness and imbalance. He reports that the dizziness and imbalance has been present since around November but the muscle twitching started about a week ago. He reports that he feels like he freezes up for a few sec and then it stops, the symptoms tend to come and go. He is completely awake and aware during these episodes. He denied any loss of consciousness, syncope, visual changes, headache, chest pain, shortness of breath. He reported no new recent medications. He drinks 4-5 beers a day last drink was yesterday, he denied any history of alcohol withdrawal or seizures. In the ER, his B12 was noted to be low at 180, B12 is low at 180, no anemia, he does have mild transaminitis as well. In the ER, he was started on phenobarbital. Plan will be to admit patient for further management and treatment of muscle twitching and possible alcohol withdrawal Review of Systems 2 Review of Systems: Denies any recent fever chills or decrease in appetite respiratory denies any shortness of breath or cough cardiovascular denied chest pain gastrointestinal denies any dysphagia abdominal pain nausea vomiting or diarrhea genitourinary denies any dysuria frequency or hematuria musculoskeletal denies any joint pain or swelling neuropsych denies any weakness or seizures all other systems reviewed are negative [facility] Medical History (Updated 01/19/25 @ 13:05 by LONNY Sanders) COPD (chronic obstructive pulmonary disease) Hypertension Surgical History History of carpal tunnel surgery of right wrist Social History Alcohol intake: current Alcohol intake frequency: 3 or more drinks per day Alcohol type: beer Patient Tobacco Use Status: Never used Tobacco Smoked in Last 30 Days: Yes Use of substances other than those prescribed or required for medical reasons: No Advance Directives: No Advance Directives Information Provided: Yes Nutrition Risks: No Nutritional Risk Current occupational status: employed 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 Meds Allergies Allergy/AdvReac Type Severity Reaction Status Date / Time No Known Allergies (No Known Allergy Verified 01/19/25 09:36 Allergies*) Active Medications: Current Medications Acetaminophen (Acetaminophen 325 Mg Tablet) 650 mg PO Q6H PRN PRN Reason: Pain, Mild 1-3,fever,headache Calcium Carbonate (Calcium Carbonate 750 Mg Tab.Chew) 750 mg PO Q4H PRN PRN Reason: Heartburn Enoxaparin Sodium (Enoxaparin Sodium 40 Mg/0.4 Ml Syringe) 40 mg SUBCUT Q24H [facility] Lactated Ringer's (Lr) 1,000 mls @ 125 mls/hr IVCONT .Q8H JOCELYN Magnesium Hydroxide (Milk Of Magnesia 30 Ml Oral.Susp) 30 ml PO DAILY PRN PRN Reason: Constipation Melatonin (Melatonin 3 Mg Tablet) 6 mg PO BEDTIME PRN PRN Reason: Insomnia Ondansetron HCl (Ondansetron Hcl 4 Mg/2 Ml Vial) 4 mg IVPUSH Q8H PRN PRN Reason: Nausea and Vomiting Pharmacy Consult (Consult Rx Etoh Phenob Im/Po) 1 each MISCELLANE ONCE PRN; Protocol PRN Reason: Consult order Phenobarbital (Phenobarbital 30 Mg Tablet) 60 mg PO BID [facility]; Protocol Stop: 01/21/25 09:01 Phenobarbital (Phenobarbital 30 Mg Tablet) 30 mg PO BID [facility]; Protocol Stop: 01/23/25 09:01 Phenobarbital (Phenobarbital 30 Mg Tablet) 30 mg PO DAILY [facility]; Protocol Stop: 01/25/25 09:01 Phenobarbital Sodium (Phenobarbital Sodium 130 Mg/Ml Vial Im Q3hx2) 240 mg IM Q3H JOCELYN; Protocol Stop: 01/19/25 17:01 Sodium Chloride (0.9 % Sodium Chloride Flush 3 Ml Syringe) 3 ml IVFLUSH QSHIFT [facility] Home Medications ?Medication ?Instructions ?Recorded ?Confirmed ?Last Taken ?Type nadolol 40 mg tablet 40 mg PO DAILY 05/09/2110/12 Unknown History omeprazole 20 mg capsule,delayed 20 mg PO DAILY 10/23/21 Unknown History release amlodipine 10 mg tablet 10 mg PO DAILY 08/20/24 Unk nown History fluticasone fur. 100 mcg-umeclid 1 inh inhalation SUZAN Y 08/20/24 Unknown History 62.5 mcg-vilant 25 mcg inhalat.powder (Trelegy Ellipta) valsartan 320 mg tablet 320 mg PO DAILY 08/20/24 Un known History allopurinol 100 mg tablet 100 mg PO DAILY 01/19/25 Un known History atorvastatin 10 mg tablet 10 mg PO DAILY 01/19/25 Unk nown History nebivolol 5 mg tablet 5 mg PO DAILY 01/19/25 Unkn own History Physical Exam 2 Vital Signs and Narrative: Vital Signs: Last Vital Signs Temp 98.1 F 01/19/25 09:31 Pulse 75 01/19/25 09:31 Resp 18 01/19/25 09:31 BP 150/81 H 01/19/25 09:31 Pulse Ox 98 01/19/25 09:31 O2 Del Method Room Air 01/19/25 09:31 BMI result Body Mass Index 30.3 Appearing in no acute distress head is normocephalic atraumatic eyes pupils are PERRLA sclera is anicteric mouth throat mucous membranes are intact and moist neck is supple no lymphadenopathy, no JVD noted lung sounds are clear to auscultation heart regular rate rhythm, clear S1, S2 positive bowel sounds, abdomen is soft, nontender neuro patient is alert x3, no focal deficits Results Labs 01/19/25 09:51 01/19/25 09:51 Labs: Laboratory Results - last 24 hr 01/19/25 01/19/25 09:51 10:46 MCV 95.7 MCH 32.9 MCHC 34.4 RDW 13.2 Plt Count 250 MPV 9.4 Immature Gran % (Auto) 0.4 Neut % (Auto) 70.7 Lymph % (Auto) 17.0 L Wood % (Auto) 9.7 Eos % (Auto) 1.5 Baso % (Auto) 0.7 Lymph # (Auto) 1.7 Wood # (Auto) 1.0 Eos # (Auto) 0.2 Baso # (Auto) 0.1 Abs Immat Gran (auto) 0.04 H Absolute Neuts (auto) 7.0 Absolute Nucleated RBC 0.000 Nucleated RBC % (auto) 0.0 Anion Gap 12 Estim Creat Clear Calc 92.2 Estimated GFR > 60 Random Glucose 117 H Calcium 9.3 Magnesium 2.4 Total Bilirubin 0.4 AST 63 H ALT 55 H Alkaline Phosphatase 110 Total Protein 7.6 Albumin 4.2 Ethyl Alcohol < 10 Influenza Type A (PCR) NEGATIVE Influenza Type B (PCR) NEGATIVE RSV RNA Qual (PCR) NEGATIVE SARS-CoV-2 RNA (RT-PCR) NEGATIVE Assessment and Plan (1) Alcohol withdrawal: Status: Acute Plan 59-year-old man admitted for alcohol withdrawal and body tensing Spasticity Unknown etiology at this time Electrolytes are normal, B12 is low, will replace Neurology consultation placed Head CT normal Alcohol withdrawal syndrome Phenobarbital protocol IV fluids Multivitamin, thiamine, folic acid PPI Transaminitis Mild Likely secondary to alcohol abuse Hypertension Stable blood pressure Wheezing Inhalers as needed albuterol as needed DVT prophylaxis with Lovenox Full code Medication reconciliation pending Quality Stroke Does the patient have a stroke diagnosis?: No VTE Prior VTE?: No VTE Risk Level:: Medical - moderate - high VTE Device Contraindication: Treatment Not Indicated VTE Drug Contraindication: N/A - Med Ordered
[2025-01-19 11:53] LABS: Folate 10.4 ng/mL (> or = 4.0)
[2025-01-19] MEDS: PHENobarbitaL sodium 130 MG/ML IM ONCE 320 MG IM (11:56)
[2025-01-19 11:58] LABS: Vitamin B12 180 pg/mL (200-900)
[2025-01-19] MEDS: Lactated Ringers 1,000 ML 125 ML IVCONT (12:05)
--- OUTSIDE RECORDS SUMMARY | 2025-01-19 12:17 | XMS_ITS | Clinical Summary ---
Author Organization [facility], Address [address] [place] [address] [place] [phone] Phone Care Team Providers Care Program Manufacturing Leader Name Role Phone Keith Salazar MD Primary Care Provider [phone] Allergies No known active allergies Medications amLODIPine [...] Colonoscopy 2013 Colorectal Cancer Screening: Sigmoidoscopy 2013 Pneumococcal Vaccine: 50+ Ye ars (1 of 1 - PCV) 2014 Influenza Vaccine (#1) 2025 Hepatitis B Vaccine Aged Out No longe r eligible based on patient's age to complete this topic Insurance [facility] Care Teams Program Manufacturing Leader Relationship Specialty Start Date End Date Keith Salazar MD [facility] [address], [place] PCP - General Internal Medicine 12/02/23
--- OUTSIDE RECORDS SUMMARY | 2025-01-19 12:17 | XMS_ITS | Clinical Summary ---
Author Organization [facility] Address [address] [place] [address] Phone Care Team Providers Care Batch Still Operator Name Role Phone Keith Salazar MD Primary Care Provider [phone] Allergies No known active allergies Medications omeprazole [...] by the office 2 tablet 5 Active amLODIPine (NORVASC) 10 mg tablet Take 1 tablet (10 mg total) by mouth 1 (one) time each day in the morning. 5 Active valsartan (DIOVAN) 320 mg tablet Take 1 tablet (320 mg total) by mouth 1 (one) time each day. 5 Active Encounters Date Type Department Care Team Description 10/26/2024 12:33 PM EDT Anesthesia Event [facility] Endoscopy [address] [place] [address] Carlos Guevara MD 10/26/2024 11:44 AM EDT - 10/26/2024 11:59 PM EDT Hospital Encounter [facility] Endoscopy [address] [place] [id number] Jeet Cardona MD Steele, Matthew G, CRNA Dasilva, John E, MD Hx of colonic polyps Discharge Disposition: Home or Self Care from Last 3 Months Surgical History Surgery Date Site/Laterality Comments KNEE ARTHROSCOPY W/ MENISCAL REPAIR 2007 Bilat eral PROCEDURE: [place] ARTHROSCOPY KNEE W/MENISCUS RPR MEDIAL/LATERAL CARPAL TUNNEL RELEASE 2012 Right PROCEDURE: [place] NEUROPLASTY &/TRANSPOS MEDIAN NRV CARPAL TUNNE ESOPHAGOGASTRODUODENOSCOPY COLONOSCOPY Medical History Medical History Date Comments Tobacco abuse 10/28/2018 DX:Tobacco abuse Tubular adenoma of colon 10/28/2018 DX:Tubu lar adenoma of colon; COMMENT: 3 in 11/2015 COPD (chronic obstructive pu lmonary disease) (CMS/HCC V24, CMS/HCC V28) 11/06/2018 DX:COPD (chronic o bstructive pulmonary disease) (HCC) Pulmonary nodules 11/06/2018 DX:Pulmonary n odules Esophageal varices (CMS/HCC V24, CMS/HCC V28) 11/18/2018 DX:Esophageal varices (HCC) GERD with esophagitis 11/18/2018 DX:GERD wi th esophagitis; COMMENT: La grade A Alcohol abuse 11/18/2018 DX:Alcohol abuse Hyperlipidemia Hypertension Family History Medical History Relation Name Comments Colon cancer Neg Hx Social History Tobacco Use Types Packs/Day Years Used Date Smoking Tobacco: Smoker, Cur rent Status Unknown Cigarettes 1 42.8 Started: 982 Smokeless Tobacco: Never Alcohol Use Standard Drinks/Week Comments Yes 0 (1 standard drink = 0.6 oz pur e alcohol) Interpersonal Safety Answer Date Record ed Physical Abuse 10/26/2024 Verbal Abuse 10/26/2024 Sex and Gender Information Value Date Recorded Sex Assigned at Male 10/25/2024 3:26 PM EDT Legal Sex Male 10:19 AM EST Gender Identity Male 10/26/2024 11:42 AM EDT Sexual Orientation Straight 10/26/2024 11 :42 AM EDT Obstetrics History Last Filed Vital Signs Vital Sign Reading Time Taken Comments Blood Pressure 130/60 10/26/2024 1:26 PM EDT Pulse 66 10/26/2024 1:26 PM EDT Temperature 36.3 C (97.3 F) 10/26/2024 1:07 PM EDT Respiratory Rate 19 10/26/2024 1:26 PM EDT Oxygen Saturation 97% 10/26/2024 1:26 PM EDT Inhaled Oxygen Concentration - - Weight 104 kg (230 lb) 10/26/2024 12:22 PM EDT Height 185.4 cm (6' 1 ) 10/26/2024 12:22 PM EDT Body Mass Index 30.34 10/26/2024 12:22 PM EDT Plan of Treatment Health Maintenance Due Date Last Done Comments Hepatitis A Vaccines (1 of 2 - Risk 2-dose series) 1983 Cholesterol Screening (Lipid Panel) 06/23/2022 Depression Screening 06/23/2022 HIV Screening 06/23/2022 Hepatitis C Screening 06/23/2022 Lung Cancer Screening (Low Dose CT) 06/23/2022 Social Influencers of Health Screening 06/23/2022 COVID-19 Vaccine ( season) 2024 08/23/2023, 08/01/2021, 11/18/2020, Additional history exists RSV Immunization Adult Patients (1 - Risk 60-74 years 1-dose series) 2024 Hypertension/CHF/CAD Annual BMP Blood Test 10/26/2024 Zoster Vaccines (2 of 2) 12/06/2024 10/11/2024, 09/13 Influenza Vaccine (#1) 2025 , 08/23/2023, 07/12/2020 Colorectal Cancer Screening: Colonoscopy 10/27/2027 10/26/2024 DTaP,Tdap,and Td Vaccines (2 - Td or Tdap) 08/30/2033 08/30/2023 Pneumococcal Vaccine: 50+ Years Completed 10/11/2024 Varicella Vaccines Aged Out 10/11/2024 No longer eligible based on patient's age to complete this topic HIB Vaccines Aged Out No longer eligi [...] to complete this topic RSV Immunization Patients Under 20 months Aged Out No longer eligible based on patient's age to complete this topic Procedures Procedure Name Priority Date/Time Associated Diagnosis Comments COLONOSCOPY Routine 10/26/2024 1:06 PM EDT Hx of colonic polyps TISSUE EXAM Routine 10/26/2024 12:56 PM EDT Hx of colonic polyps from Last 3 Months Results * COLONOSCOPY Anesthesia - MAC; [facility] ENDOSCOPY (10/26/2024 1:06 PM EDT) Anatomical Region Laterality Modality Endoscopy 10/26/2024 12:4 6 PM EDT Impressions 10/26/2024 1:09 PM EDT - Three 2 to 10 mm polyps in the sigmoid colon, in the descending colon and in the cecum, removed with a cold snare. Resected and retrieved. - Internal hemorrhoids. Recommendation: - Await pathology results. - Repeat colonoscopy in 3 years for surveillance. Narrative 10/26/2024 1:09 PM EDT [facility] GI Patient Name: Nicolas Sy Procedure Date: 10/26/2024 12:46 PM Date of : 1965 Age: 59 Gender: Male Note Status: Finalized Attending MD: Jeet Cardona MD, Procedure Date No Time: 10/26/2024 Procedure: Colonoscopy Indications: High risk colon cancer surveillance: Personal history of colonic polyps, Last colonoscopy: November 2018 Providers: Jeet Cardona MD Referring MD: Jeet Cardona MD Medicines: Propofol per Anesthesia Complications: No immediate complications. Estimated blood loss: Minimal. Estimated Blood Loss: Estimated blood loss was minimal. Procedure: Pre-Anesthesia Assessment: - Prior to the procedure, a History and Physical was performed, and patient medications and allergies were reviewed. The patient is competent. The risks and benefits of the procedure and the sedation options and risks were discussed with the patient. All questions were answered and informed consent was obtained. Patient identification and proposed procedure were verified by the physician, the nurse, the nuclear monitoring technician and the solids control technician in the pre-procedure area in the endoscopy suite. Mental Status Examination: alert and oriented. Airway Examination: normal oropharyngeal airway and neck mobility. Respiratory Examination: clear to auscultation. CV Examination: normal. Prophylactic Antibiotics: The patient does not require prophylactic antibiotics. Prior Anticoagulants: The patient has taken no anticoagulant or antiplatelet agents. ASA Grade Assessment: II - A patient with mild systemic disease. After reviewing the risks and benefits, the patient was deemed in satisfactory condition to undergo the procedure. The anesthesia plan was to use monitored anesthesia care (MAC). Immediately prior to administration of medications, the patient was re-assessed for adequacy to receive sedatives. The heart rate, respiratory rate, oxygen saturations, blood pressure, adequacy of pulmonary ventilation, and response to care were monitored throughout the procedure. The physical status of the patient was re-assessed after the procedure. After I obtained informed consent, the scope was passed under direct vision. Throughout the procedure, the patient's blood pressure, pulse, and oxygen saturations were monitored continuously. The Olympus Colonoscope was introduced through the anus and advanced to the cecum, identified by appendiceal orifice and ileocecal valve. The colonoscopy was performed without difficulty. The patient tolerated the procedure well. The quality of the bowel preparation was good. Findings: The perianal and digital rectal examinations were normal. Three sessile polyps were found in the sigmoid colon, descending colon and cecum. The polyps were 2 to 10 mm in size. These polyps were removed with a cold snare. Resection and retrieval were complete. Estimated blood loss was minimal. Internal hemorrhoids were found during retroflexion. The hemorrhoids were Grade I (internal hemorrhoids that do not prolapse) and Grade II (internal hemorrhoids that prolapse but reduce spontaneously). Procedure Code(s): --- Professional --- 72892, Colonoscopy, flexible; with removal of tumor(s), polyp(s), or other lesion(s) by snare technique Diagnosis Code(s): --- Professional --- D12.5, Benign neoplasm of sigmoid colon D12.4, Benign neoplasm of descending colon D12.0, Benign neoplasm of cecum CPT copyright 2020 [employer]. All rights reserved. The codes documented in this report are preliminary and upon sr. director review may be revised to meet current compliance requirements. Jeet Cardona MD 10/26/2024 1:09:11 PM This report has been signed electronically.Jeet Cardona MD Number of Addenda: 0 Note Initiated On: 10/26/2024 12:46 PM Scope Withdrawal Time: 0 hours 11 minutes 55 seconds Scope In: 12:51:14 PM Scope Out: 1:07:04 PM Endoscopy Department at [facility] - [address] [place] [phone] Procedure Note Jeet Cardona MD - 10/26/2024 [facility] GI Patient Name: Nicolas Sy Procedure Date: 10/26/2024 12:46 PM Date of : 1965 Age: 59 Gender: Male Note Status: Finalized Attending MD: Jeet Cardona MD, Procedure Date No Time: 10/26/2024 Procedure: Colonoscopy Indications: High risk colon cancer surveillance: Personalhistory of colonic polyps, Last colonoscopy: November 2018 Providers: Jeet Cardona MD Referring MD: Jeet Cardona MD Medicines: Propofol per Anesthesia Complications: No immediate complications. Estimated blood loss: Minimal. Estimated Blood Loss: Estimated blood loss was minimal. Procedure: Pre-Anesthesia Assessment: - Prior to the procedure, a History and Physicalwas performed, and patient medications and allergieswere reviewed. The patient is competent. The risks and benefits of the procedure and the sedation optionsand risks were discussed with the patient. Allquestions were answered and informed consent was obtained. Patient identification and proposed procedure were verified by the physician, the nurse, theanesthetist and the solids control technician in the pre-procedure area in the endoscopy suite. Mental Status Examination: alertand oriented. Airway Examination: normal oropharyngeal airway and neck mobility. Respiratory Examination: clear to auscultation. CV Examination: normal. Prophylactic Antibiotics: The patient does notrequire prophylactic antibiotics. Prior Anticoagulants: The patient has taken no anticoagulant or antiplatelet agents. ASA Grade Assessment: II - A patient withmild systemic disease. After reviewing the risks and benefits, the patient was deemed in satisfactory condition to undergo the procedure. The anesthesia plan was to use monitored anesthesia care (MAC). Immediately prior to administration of medications, the patient was re-assessed for adequacy to receive sedatives. The heart rate, respiratory rate, oxygen saturations, blood pressure, adequacy of pulmonary ventilation, and response to care were monitored throughout the procedure. The physical status ofthe patient was re-assessed after the procedure. After I obtained informed consent, the scope was passed under direct vision. Throughout theprocedure, the patient's blood pressure, pulse, and oxygen saturations were monitored continuously. TheOlympus Colonoscope was introduced through the anus and advanced to the cecum, identified by appendiceal orifice and ileocecal valve. The colonoscopy was performed without difficulty. The patient tolerated the procedure well. The quality of the bowel preparation was good. Findings: The perianal and digital rectal examinations were normal. Three sessile polyps were found in the sigmoidcolon, descending colon and cecum. The polyps were 2 to 10mm in size. These polyps were removed with a coldsnare. Resection and retrieval were complete. Estimatedblood loss was minimal. Internal hemorrhoids were found duringretroflexion. The hemorrhoids were Grade I (internal hemorrhoids that do not prolapse) and Grade II (internal hemorrhoids that prolapse but reducespontaneously). Procedure Code(s): --- Professional --- 44500, Colonoscopy, flexible; with removal of tumor(s), polyp(s), or other lesion(s) by snare technique Diagnosis Code(s): --- Professional --- D12.5, Benign neoplasm of sigmoid colon D12.4, Benign neoplasm of descending colon D12.0, Benign neoplasm of cecum CPT copyright 2020 [employer]. All rights reserved. The codes documented in this report are preliminary and upon sr. director reviewmay be revised to meet current compliance requirements. Jeet Cardona MD 10/26/2024 1:09:11 PM This report has been signed electronically.Jeet Cardona MD Number of Addenda: 0 Note Initiated On: 10/26/2024 12:46 PM Scope Withdrawal Time: 0 hours 11 minutes 55 seconds Scope In: 12:51:14 PM Scope Out: 1:07:04 PM Endoscopy Department at [facility] - [address] [place] [phone] IMPRESSION: - Three 2 to 10 mm polyps in the sigmoid colon, in the descending colon and in the cecum, removed with acold snare. Resected and retrieved. - Internal hemorrhoids. Recommendation: - Await pathology results. - Repeat colonoscopy in 3 years for surveillance. us Jeet Cardona MD GI~PROCEDURE ORDERABLES Fin al Result * Tissue exam (10/26/2024 12:56 PM EDT) Final Diagnosis A. Large Intestine, Cecum, polyp x1: - Tubular adenoma. B. Large Intestine, Left/Descending Colon, polyp x1: - Tubular adenoma. C. Large Intestine, Sigmoid Colon, polyp x1: - Tubular adenoma. 10/27/2024 9:13 AM EDT [facility] Gross Description A. Large Intestine, Cecum, polyp x1: Labeled colon cecum polyp x 1 . Received in formalin are three irregular zelaya mucosal tissue fragments, each measuring approximately 0.6 cm in greatest dimension, which are wrapped in paper and submitted in toto in one cassette, three pieces, multiple levels on one slide. B. Large Intestine, Left/Descending Colon, polyp x1: Labeled descending colon polyp x 1 . Received in formalin is a 0.5 cm irregular pink-white mucosal tissue fragment which is wrapped in paper and submitted in toto in one cassette, one piece, multiple levels on one slide. C. Large Intestine, Sigmoid Colon, polyp x1: Labeled Sig colon polyp x 1 . Received in formalin is a 1.1 x 0.6 x 0.4 cm zelaya-pink mucosal polyp. The resection margin is inked blue. The polyp is bisected. Also received in same container is a 0.7 cm irregular zelaya mucosal tissue fragment. The specimen is wrapped in paper and entirely submitted in one cassette, three pieces, multiple levels on one slide. GEORGIE 10/27/2024 9:13 AM EDT [facility] Disclaimer Unless otherwise specified, all tissue is 10% NB formalin fixed and paraffin embedded. 10/27/2024 9:13 AM EDT [facility] Tissue Cecum structure / Unknown 10/26/2024 12:56 PM EDT 10/26/2024 2:20 PM EDT Tissue specimen (specimen) Descending colon structure / Unknown 10/26/2024 12:59 PM EDT 10/26/2024 2:20 PM EDT Tissue specimen (specimen) Sigmoid colon structure / Unknown 10/26/2024 1:03 PM EDT 10/26/2024 2:20 PM EDT Jeet Cardona MD LAB PATHOLOGY ORDERABLES nal Result [facility] [address] [place] [address], from Last 3 Months Insurance [facility] Care Teams Batch Still Operator Relationship Specialty Start Date End Date Keith Salazar MD [address] [place] [address] PCP - General Internal Medicine 09/09/18
[2025-01-19 12:41] VITALS: BP 142/80; PULSE 66; RESP 17; TEMP 37.1; O2SAT 92
--- NOTE | 2025-01-19 13:45 | PHA.MEDREC ---
Addendum entered by Sharad Menard PharmD 01/19/25 14:47: reviewed Original Note: Pharmacy Consult ? Medication Reconciliation Pharmacy has completed the medication reconciliation. Spoke with pt and he confirmed his medications. Pt stopped all his meds Wednesday 01/17, due to what hes been experiencing. Pt was taking Milk Thistle QD but states he thinks this is the reason why he is here today and does not think he is going to continue it at home.
--- NOTE | 2025-01-19 14:03 | MHC.EDTECH ---
pt ate 100% of lunch tray
[2025-01-19 14:04] VITALS: BP 138/75; PULSE 82; RESP 19; TEMP 36.7; O2SAT 98
[2025-01-19] MEDS: PHENobarbitaL sodium 130 MG/ML VIAL IM Q3Hx2 240 MG IM (15:11)
--- NOTE | 2025-01-19 15:32 | PM.NEUROCN ---
History of Present Illness Data of Consult Service Date: 01/19/25 Primary Care Provider: Keith Salazar MD [facility] Reason for consult: Twitching 59-year-old man presented to the ER with complaints of shakiness and muscle twitching, dizziness and imbalance. He reports that the dizziness and imbalance has been present since around November but the muscle twitching started about a week ago. He reports that he feels like he freezes up for a few sec and then it stops, the symptoms tend to come and go. He is completely awake and aware during these episodes. He denied any loss of consciousness, syncope, visual changes, headache, chest pain, shortness of breath. He reported no new recent medications. He drinks 4-5 beers a day last drink was yesterday, he denied any history of alcohol withdrawal or seizures. In the ER, his B12 was noted to be low at 180, B12 is low at 180, no anemia, he does have mild transaminitis as well. In the ER, he was started on phenobarbital. Plan will be to admit patient for further management and treatment of muscle twitching and possible alcohol withdrawal CT brain normal. [facility] Past Medical History Medical History (Updated 01/19/25 @ 13:05 by LONNY Sanders) COPD (chronic obstructive pulmonary disease) Hypertension Surgical History Surgical History History of carpal tunnel surgery of right wrist Social History Social History Alcohol intake: current Alcohol intake frequency: 3 or more drinks per day Alcohol type: beer Patient Tobacco Use Status: Never used Tobacco Smoked in Last 30 Days: Yes Use of substances other than those prescribed or required for medical reasons: No Advance Directives: No Advance Directives Information Provided: Yes Nutrition Risks: No Nutritional Risk Current occupational status: employed 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 Meds Allergies Allergy/AdvReac Type Severity Reaction Status Date / Time No Known Allergies (No Known Allergy Verified 01/19/25 09:36 Allergies*) Active Medications: Current Medications Acetaminophen (Acetaminophen 325 Mg Tablet) 650 mg PO Q6H PRN PRN Reason: Pain, Mild 1-3,fever,headache Albuterol Sulfate (Albuterol Sulfate (0.083%) 2.5 Mg/3 Ml Vial.Neb) 2.5 mg INHALE Q4H PRN PRN Reason: Wheezing Calcium Carbonate (Calcium Carbonate 750 Mg Tab.Chew) 750 mg PO Q4H PRN PRN Reason: Heartburn Enoxaparin Sodium (Enoxaparin Sodium 40 Mg/0.4 Ml Syringe) 40 mg SUBCUT Q24H [facility] Last Admin: 01/19/25 11:56 Dose: 40 mg Lactated Ringer's (Lr) 1,000 mls @ 125 mls/hr IVCONT .Q8H JOCELYN Last Admin: 01/19/25 12:05 Dose: 125 mls/hr Magnesium Hydroxide (Milk Of Magnesia 30 Ml Oral.Susp) 30 ml PO DAILY PRN PRN Reason: Constipation Melatonin (Melatonin 3 Mg Tablet) 6 mg PO BEDTIME PRN PRN Reason: Insomnia Ondansetron HCl (Ondansetron Hcl 4 Mg/2 Ml Vial) 4 mg IVPUSH Q8H PRN PRN Reason: Nausea and Vomiting Pharmacy Consult (Consult Rx Etoh Phenob Im/Po) 1 each MISCELLANE ONCE PRN; Protocol PRN Reason: Consult order Phenobarbital (Phenobarbital 30 Mg Tablet) 60 mg PO BID [facility]; Protocol Stop: 01/21/25 09:01 Phenobarbital (Phenobarbital 30 Mg Tablet) 30 mg PO BID [facility]; Protocol Stop: 01/23/25 09:01 Phenobarbital (Phenobarbital 30 Mg Tablet) 30 mg PO DAILY [facility]; Protocol Stop: 01/25/25 09:01 Phenobarbital Sodium (Phenobarbital Sodium 130 Mg/Ml Vial Im Q3hx2) 240 mg IM Q3H JOCELYN; Protocol Stop: 01/19/25 17:01 Last Admin: 01/19/25 15:11 Dose: 240 mg Sodium Chloride (0.9 % Sodium Chloride Flush 3 Ml Syringe) 3 ml IVFLUSH QSHIFT [facility] Home Medications ?Medication ?Instructions ?Recorded ?Confirmed ?Last Taken ?Type amlodipine 10 mg tablet 10 mg PO DAILY 08/20/24 01/19/25 01/17/25 History fluticasone fur. 100 mcg-umeclid 1 inh inhalation DAILY 08/20/24 01/19/25 01/17/25 History 62.5 mcg-vilant 25 mcg inhalat.powder (Trelegy Ellipta) valsartan 320 mg tablet 320 mg PO DAILY 08/20/24 01/19/25 01/17/25 History allopurinol 100 mg tablet 100 mg PO DAILY 01/19/25 01/19/25 01/17/25 History atorvastatin 10 mg tablet 10 mg PO DAILY 01/19/25 01/19/25 01/17/25 History nebivolol 5 mg tablet 5 mg PO DAILY 01/19/25 01/19/25 01/17/25 History omeprazole magnesium 20 mg 20 mg PO DAILY@0630 01/19/25 01/19/25 01/17/25 History tablet,delayed release (Prilosec OTC) Physical Exam Vital Signs: Vital Signs: Last Vital Signs Temp 98.1 F 01/19/25 14:04 Pulse 82 01/19/25 14:04 Resp 19 01/19/25 14:04 BP 138/75 01/19/25 14:04 Pulse Ox 98 01/19/25 14:04 O2 Del Method Room Air 01/19/25 14:04 BMI result Body Mass Index 30.3 Neuro: Other: Non focal exam. He is alert and oriented with normal intellectual functions. Cranial nerves 2-12 are normal. Muscle tone and strength are normal in all 4 extremities. There is no asterixis or tremor. No increased muscle excitability. Reflexes symmetrical, plantar responses flexor. Results Labs 01/19/25 09:51 01/19/25 09:51 Labs: Short CBC 01/19/25 Range/Units 09:51 WBC 9.9 (4.8-10.8) X10*3/uL Hgb 14.5 (14.0-18.0) g/dl Hct 42.2 (42.0-52.0) % Plt Count 250 (160-400) X10*3/uL BMP 01/19/25 09:51 Sodium 139 Potassium 5.0 Chloride 104 Carbon Dioxide 28 BUN 17 H Creatinine 1.08 Calcium 9.3 Liver Function 01/19/25 Range/Units 09:51 Total Bilirubin 0.4 (0.0-1.0) mg/dL AST 63 H (5-37) U/L ALT 55 H (0-40) U/L Alkaline Phosphatase 110 (39-117) U/L Albumin 4.2 (3.5-5.0) g/dL Assessment and Plan (1) Alcohol withdrawal: Status: Acute Plan Check calcium, magnesium, phosphate levels, Thyroid profile and CPK. Treat for impending DTs. Procedures Date of Service Date of Service: 01/19/25
[2025-01-19 16:22] VITALS: BP 136/86; PULSE 62; RESP 19; TEMP 37; O2SAT 96
--- NOTE | 2025-01-19 18:34 | PC.NURSE ---
pt states he would like to sign himself out. does not want to wait for a bed. Hospitalist contacted. awaiting MD to talk to pt about UL[facility] SHRESTHA
[2025-01-19 19:47] VITALS: BP 136/86; PULSE 62; RESP 19; TEMP 37; O2SAT 96
--- NOTE | 2025-01-19 19:50 | PM.EVENT ---
Event Note Date of Service: 01/19/25 Event Note: Patient requested to leave AMA. He said he feels well and has an appointment with his primary care physician tomorrow. He said he has no withdrawal symptoms and that he was already seen by the neurologist. He is aware of the dangers of leaving the hospital prematurely including delirium tremens and . Time Spent With Patient Time: Total time managing care of this patient today ____ minutes.
--- NOTE | 2025-01-19 19:58 | PC.NURSE ---
pt refused 1700 phenobarb. he decided to leave [facility]. Dr. Jitendra Nelson met with pt. Per verbal order - OK to DC. Pt signed form. walking well, no muscle spasms noted, denies pain, has no complaints. accompanied out of department with partner.
--- NOTE | 2025-02-01 12:15 | PM.DS ---
DS: Providers Provider Date of Service: 01/19/25 Date of admission: 01/19/25 11:36 Date of discharge: 01/19/25 Primary care physician: Keith Salazar MD Admitting clinician: Heather Foreman Attending physician on admission: Heather Foreman Consults: 01/19/25 12:23 Consult to Neurology Routine Consulting Provider: [facility] Reason for consultation: body twitching, dizzy, imbalance Attending physician on discharge: Heather Foreman Discharging clinician: Tarah Nelson DS: Diagnosis Discharge Diagnosis (1) Alcohol withdrawal: Status: Acute DS: Summary Hospital Course Hospital Course: Chief Complaint: Alcohol withdrawal 59-year-old man presented to the ER with complaints of shakiness like muscle twitching, dizziness and imbalance. He reports that the dizziness and imbalance has been present since around November but the muscle twitching started about a week ago. He reports that he feels like he freezes up for a few sec and then it stops, the symptoms tend to come and go. He is completely awake and aware during these episodes. He denied any loss of consciousness, syncope, visual changes, headache, chest pain, shortness of breath. He reported no new recent medications. He drinks 4-5 beers a day last drink was yesterday, he denied any history of alcohol withdrawal or seizures. In the ER, his B12 was noted to be low at 180, B12 is low at 180, no anemia, he does have mild transaminitis as well. In the ER, he was started on phenobarbital. Plan will be to admit patient for further management and treatment of muscle twitching and possible alcohol withdrawal. Patient was admitted and remained in the ED awaiting for a bed. He was evaluated by neurologist, Dr. Lizama and recommended: Check calcium, magnesium, phosphate levels, Thyroid profile and CPK. Treat for impending DTs. Subsequently, the same date of admission the patient requested to leave AMA. He said he feels well and has an appointment with his primary care physician tomorrow. He said he has no withdrawal symptoms and that he was already seen by the neurologist. He is aware of the dangers of leaving the hospital prematurely including delirium tremens and . Time Attestation Total time managing care of this patient today: 20 mintues. Discharge Coordination Time (in mins): 20 minutes Quality: Safe Use of Opioids Does Pt have an Active Cancer Diagnosis on the Problem List?: No Quality: Stroke Does the patient have a stroke diagnosis?: No Physical Exam Exam: Exam: Appearing in no acute distress head is normocephalic atraumatic eyes pupils are PERRLA sclera is anicteric mouth throat mucous membranes are intact and moist neck is supple no lymphadenopathy, no JVD noted lung sounds are clear to auscultation heart regular rate rhythm, clear S1, S2 positive bowel sounds, abdomen is soft, nontender neuro patient is alert x3, no focal deficits Vital Signs: Vital Signs: Last Vital Signs Temp 98.6 F 01/19/25 19:47 Pulse 62 01/19/25 19:47 Resp 19 01/19/25 19:47 BP 136/86 01/19/25 19:47 Pulse Ox 96 01/19/25 19:47 O2 Del Method Room Air 01/19/25 19:47 BMI result Body Mass Index 30.3 Discharge Plan Discharge Patient Disposition: Left Against Medical Advice Discharge Diagnosis: Alcohol withdrawal syndrome, spasticity Discharge Medications: No Action atorvastatin 10 mg tablet 10 mg PO DAILY allopurinol 100 mg tablet 100 mg PO DAILY nebivolol 5 mg tablet 5 mg PO DAILY omeprazole magnesium [Prilosec OTC] 20 mg Tablet,Delayed Release (Dr/Ec) 20 mg PO DAILY@0630 valsartan 320 mg tablet 320 mg PO DAILY amlodipine 10 mg tablet 10 mg PO DAILY Trelegy Ellipta 100-62.5-25 mcg blister with device 1 inh inhalation DAILY Discharge Orders: Discharge Order (Routine); Ordered 01/19/25 Ordered By: Tarah Nelson Stand Alone Forms: Against Medical Advice Print Language: Belgian Care Plan Goals: Left AMA Health Concerns: Left AMA Plan of Treatment: Left AMA Assessment: Patient requested to leave AMA. He said he feels well and has an appointment with his primary care physician tomorrow. He said he has no withdrawal symptoms and that he was already seen by the neurologist. He is aware of the dangers of leaving the hospital prematurely including delirium tremens and . He was advised to return to ED if symptoms recur, to follow up with PCP and to avoid alcohol consumption. Discharge Date/Time: 01/19/25 20:01
== END 2025-01-19 20:01 | disposition left against medical advice (07) | DRG 770 ==
LOC: HO.ED 11:48 → HO.EDOVER 12:03
PROVIDERS: Physician Assistant Medical; Admitting Provider Nurse Practitioner Acute Care; Emergency Provider Emergency Medicine; PCP Internal Medicine; Visit Provider Nurse Practitioner Acute Care
DX: F10.139 Alcohol abuse with withdrawal, unspecified (principal); I10 Essential (primary) hypertension; Z79.51 Long term (current) use of inhaled steroids; Z79.899 Other long term (current) drug therapy
CPT/HCPCS: 36415; 70450; 80053; 80307; 82607; 82746; 83735; 84484; 85025; 87637; 93005; 99222; 99285; J1650; J2560; J7120

== ENCOUNTER → 2025-01-19 09:40 | Outpatient (BNV) | payer BC, SELFPAY | PROVIDERS: Admitting Provider Nurse Practitioner Acute Care; Emergency Provider Emergency Medicine; PCP Internal Medicine; Visit Provider Internal Medicine Cardiovascular Disease | DX: I49.1 Atrial premature depolarization (principal) | CPT/HCPCS: 93010 ==

== ENCOUNTER 2025-01-19 11:36 | Outpatient (BNV) | payer BC, SELFPAY | END 2025-01-19 11:42 | PROVIDERS: Admitting Provider Nurse Practitioner Acute Care; Emergency Provider Emergency Medicine; PCP Internal Medicine; Visit Provider Radiology Diagnostic Radiology | DX: R42 Dizziness and giddiness (principal); R25.3 Fasciculation; R26.9 Unspecified abnormalities of gait and mobility | CPT/HCPCS: 70450 ==

== ENCOUNTER → 2025-01-19 11:36 | Outpatient (BNV) | payer BC, SELFPAY | PROVIDERS: Admitting Provider Nurse Practitioner Acute Care; Emergency Provider Emergency Medicine; PCP Internal Medicine; Visit Provider Internal Medicine | DX: F10.939 Alcohol use, unspecified with withdrawal, unspecified (principal) | CPT/HCPCS: 99234; 99499 ==

== ENCOUNTER → 2025-01-19 11:36 | Outpatient (BNV) | payer BC, SELFPAY | PROVIDERS: Admitting Provider Nurse Practitioner Acute Care; Emergency Provider Emergency Medicine; PCP Internal Medicine; Visit Provider Psychiatry & Neurology Neurology | DX: F10.939 Alcohol use, unspecified with withdrawal, unspecified (principal) | CPT/HCPCS: 99232 ==